=== PATIENT | male | born 1970 | race Caucasian/White ===

== ENCOUNTER → 2016-08-19 | Outpatient (CLI) | payer OTHER ==
[~2016-08-19] MED LIST: /ACETCOD2T PO; /CELE20CA OR; /DIVA50TA PO; /ESOM40CA OR; /ONDA4TA SL; /SUCR1TA OR; ACET65TA OR; ALLE25CA OR; ASPI325T PO; ASPI81TA85 PO; AUGM875T27 PO; BACL10TA2 PO; BOTO100I IM; CETI10CH PO; CETI10TA OR; CETI10TA PO; CETI10TA3 PO; COLA100C2 OR; FISH1000 PO; FLUT50SP; FLUTISP; MAGN1TAB25 PO; MAXA5TAB10 PO; MELO15TA3 PO; MELO15TA4 PO; MELOPOW PO; METO10TA2 OR; MILKSUS OR; MULT1TAB10 PO; MULTCAP PO; NEXI20CA PO; NORT25CA2 PO; PERC5TAB8 OR; PSEU30SY3 PO; RIZA5TAB PO; VITA500046 PO; ZOLO100T PO; ZOLP5TAB PO; [UNRECOGNIZED DRUG - OTHER] OD; patanol OU; tylenol #3 PO
--- NOTE | 2016-08-20 17:20 | ECGEPIP ---
Stationary ECG Study [facility] Test Date: 2016-08-19 Pat Name: VALENTINA ANDREA Department: Room: - Gender: M Technical Illustrator: KIM : 1970 Requested By: Anson Hand Order Number: [id number] Reading MD: Jaden Sharma Measurements Intervals [place] Rate: 59 P: 37 MA: 148 QRS: -9 QRSD: 90 T: 17 QT: 393 QTc: 391 Interpretive Statements SINUS BRADYCARDIA WITH SINUS ARRHYTHMIA Sinus arrhythmia new compared with 12/30/2013. Electronically Signed On 08-20-2016 17:20:27 EDT by Jaden Sharma
== END ==
LOC: M EKG 16:56
PROVIDERS: ATTEND Anesthesiology
DX: G47.9 Sleep disorder, unspecified (principal); R12 Heartburn; M19.90 Unspecified osteoarthritis, unspecified site; F41.9 Anxiety disorder, unspecified; F32.9 Major depressive disorder, single episode, unspecified; I49.5 Sick sinus syndrome; I49.8 Other specified cardiac arrhythmias

== ENCOUNTER → 2016-08-23 | Day surgery (SDC) | payer OTHER ==
[~2016-08-23] VITALS: Ht 180.3 cm; Wt 88.9 kg
[~2016-08-23] MED LIST changes: +ACETAMINOPH W/CODEINE #3 TAB UD PO PRN; +GLYCOPYRROLATE INJ 0.2 MG/ML 2 ML VIAL As Ordered ONE; +HYDROmorphone HCL 1 MG/ML SYRINGE (J1170) IV PRN; +LIDOCAINE 2% INJ 100 MG/5 ML SDV (FOR ANES.) As Ordered ONE; +LIDOCAINE W/EPINEPHRINE 1% 20ML VIAL As Ordered ONE; +LR 1,000 ML IV ONE; +LR 1,000 ML IV SCH; +MIDAZOLAM INJ 2 MG/2 ML VIAL (J2250) As Ordered ONE; +NEOSTIGMINE 1MG/ML 5 ML SYRINGE (J2710) As Ordered ONE; +ONDANSETRON 4MG/2ML VIAL (J2405) As Ordered ONE; +ONDANSETRON 4MG/2ML VIAL (J2405) IV PRN; +PERCOCET 5MG/325MG TAB PO PRN; +PROPOFOL 200 MG/20 ML VIAL As Ordered ONE; +ROCURONIUM BROMIDE 50 MG/5 ML VIAL As Ordered ONE; +SILVER NITRATE APPLICATOR As Ordered ONE; +TRIAMCINOLONE ACETONIDE SUSP 40 MG/ML VIAL (J3301) As Ordered ONE; +dexameTHASONE 4 MG/ML 1ML VIAL (J1100) As Ordered ONE; +fentaNYL 100 MCG/2 ML INJECTION (J3010) As Ordered ONE; +fentaNYL 100 MCG/2 ML INJECTION (J3010) IV PRN
--- NOTE | 2016-08-23 08:58 | RO ---
DATE OF PROCEDURE: 08/23/2016 PREOPERATIVE DIAGNOSIS: Chronic right submandibular sialadenitis. POSTOPERATIVE DIAGNOSIS: Chronic right submandibular sialadenitis. OPERATIVE PROCEDURE: Right sialoendoscopy. SURGEON: Sylvester Hennessy MD NOISE ABATEMENT ENGINEER: BUFFY Rosario ANESTHESIA: DESCRIPTION OF PROCEDURE: Under general anesthesia with the patient intubated, the patient was draped in the usual manner, I probed the opening to the submandibular duct on the right side. I identified the opening, and then I passed the endoscope into the submandibular duct. It was stenotic. I could not pass the cannula or the scope more than 1.5 cm. So, what I did was I made an incision over the duct. The duct was all stenotic. Again, once I identified that, I still could not pass the scope down into it. So, I elected to end the procedure. The patient will require a submandibular gland resection. Edited: 08/23/2016 1032 vlm MTDD
[2016-08-23 10:45] VITALS: BP 131/83
== END ==
LOC: M SDC 05:52
PROVIDERS: ATTEND Otolaryngology
DX: K11.23 Chronic sialoadenitis (principal); I10 Essential (primary) hypertension; Z79.899 Other long term (current) drug therapy; Z79.82 Long term (current) use of aspirin; Q21.1 Atrial septal defect; M19.90 Unspecified osteoarthritis, unspecified site; F32.9 Major depressive disorder, single episode, unspecified; F41.9 Anxiety disorder, unspecified; G47.30 Sleep apnea, unspecified; M51.9 Unspecified thoracic, thoracolumbar and lumbosacral intervertebral disc disorder; G43.909 Migraine, unspecified, not intractable, without status migrainosus; J30.2 Other seasonal allergic rhinitis
CPT/HCPCS: 42699; J1100; J2250; J2405; J2710; J3010

== ENCOUNTER 2017-02-27 10:23 | Day surgery (SDC) | payer OTHER ==
[~2017-02-27] VITALS: Ht 177.8 cm; Wt 96.6 kg
[~2017-02-27 10:23] MED LIST changes: -ACETAMINOPH W/CODEINE #3 TAB UD PO PRN; +CYCL5TAB PO; -GLYCOPYRROLATE INJ 0.2 MG/ML 2 ML VIAL As Ordered ONE; -HYDROmorphone HCL 1 MG/ML SYRINGE (J1170) IV PRN; -LIDOCAINE 2% INJ 100 MG/5 ML SDV (FOR ANES.) As Ordered ONE; -LIDOCAINE W/EPINEPHRINE 1% 20ML VIAL As Ordered ONE; -LR 1,000 ML IV SCH; +META48.54 PO; -MIDAZOLAM INJ 2 MG/2 ML VIAL (J2250) As Ordered ONE; -NEOSTIGMINE 1MG/ML 5 ML SYRINGE (J2710) As Ordered ONE; -ONDANSETRON 4MG/2ML VIAL (J2405) As Ordered ONE; -ONDANSETRON 4MG/2ML VIAL (J2405) IV PRN; -PERCOCET 5MG/325MG TAB PO PRN; -PROPOFOL 200 MG/20 ML VIAL As Ordered ONE; -ROCURONIUM BROMIDE 50 MG/5 ML VIAL As Ordered ONE; -SILVER NITRATE APPLICATOR As Ordered ONE; -TRIAMCINOLONE ACETONIDE SUSP 40 MG/ML VIAL (J3301) As Ordered ONE; -dexameTHASONE 4 MG/ML 1ML VIAL (J1100) As Ordered ONE; -fentaNYL 100 MCG/2 ML INJECTION (J3010) As Ordered ONE; -fentaNYL 100 MCG/2 ML INJECTION (J3010) IV PRN
[2017-02-27] MEDS ORDERED: MIDAZOLAM INJ 2 MG/2 ML VIAL (J2250) As Ordered ONE (13:13)
[2017-02-27] MEDS ORDERED: fentaNYL 100 MCG/2 ML INJECTION (J3010) As Ordered ONE ×2 (13:13→15:25)
[2017-02-27] MEDS ORDERED: BACITRACIN OINT 30GM As Ordered ONE (13:41)
[2017-02-27] MEDS ORDERED: LIDOCAINE W/EPINEPHRINE 1% 20ML VIAL As Ordered ONE (13:41)
[2017-02-27] MEDS ORDERED: LIDOCAINE 2% INJ 100 MG/5 ML SDV (FOR ANES.) As Ordered ONE (14:05)
[2017-02-27] MEDS ORDERED: dexameTHASONE 4 MG/ML 1ML VIAL (J1100) As Ordered ONE (14:05)
[2017-02-27] MEDS ORDERED: ROCURONIUM BROMIDE 50 MG/5 ML VIAL/SYRINGE As Ordered ONE (14:05)
[2017-02-27] MEDS ORDERED: PROPOFOL 200 MG/20 ML VIAL As Ordered ONE (14:05)
[2017-02-27] MEDS ORDERED: ONDANSETRON 4MG/2ML VIAL (J2405) As Ordered ONE (14:05)
[2017-02-27] MEDS ORDERED: ONDANSETRON 4MG/2ML VIAL (J2405) IV PRN (15:45)
[2017-02-27] MEDS ORDERED: LR 1,000 ML IV SCH ×2 (15:45→16:00)
[2017-02-27] MEDS ORDERED: PERCOCET 5MG/325MG TAB PO PRN (15:45)
[2017-02-27] MEDS ORDERED: fentaNYL 100 MCG/2 ML INJECTION (J3010) IV PRN (15:45)
--- NOTE | 2017-02-27 15:56 | RO ---
DATE OF PROCEDURE: 02/27/2017 PREOPERATIVE DIAGNOSIS: Chronic right submandibular sialadenitis. POSTOPERATIVE DIAGNOSIS: Chronic right submandibular sialadenitis. OPERATIVE PROCEDURE: Right submandibular gland resection. SURGEON: Sylvester Hennessy MD LIBRARY SERVICES DEAN: Mariano Pollock PA-C ANESTHESIA: General. DESCRIPTION OF PROCEDURE: Under general anesthesia, with the patient intubated, the patient was draped in the usual manner. I marked out the incision at the level of the hyoid. I infiltrated with lidocaine with epinephrine. I made an incision dividing the skin and subcutaneous tissue and platysma. I dissected down to the inferior aspect of the submandibular gland. Then singling out the gland, I followed the gland superiorly. Then using a Harmonic scalpel, I dissected around the gland, and identified vessels and then divided them with the Harmonic scalpel. I went superiorly and then anteriorly, identified the mylohyoid muscle. Posteriorly vessels entering into the gland were divided with a Harmonic scalpel. I identified the lingual nerve and then divided the pedicle distal to that. I then delivered the gland from the wound. The area was irrigated to make sure there was no bleeding. The vessels bleeding were cauterized with bipolar cautery. When there was no bleeding, then I put some Surgicel on the wound and then closed the wound with #4-0 Vicryl and then #5-0 nylon. Less than 5 mL of estimated blood loss. The patient tolerated the procedure well, was extubated and transferred to the recovery room in excellent condition.
[2017-02-27] MEDS ORDERED: ACETAMINOPH W/CODEINE #3 TAB UD PO PRN (16:00)
[2017-02-27] MEDS ORDERED: KETOROLAC 30 MG/ML VIAL (J1885) As Ordered ONE (16:26)
[2017-02-27] MEDS ORDERED: KETOROLAC 30 MG/ML VIAL (J1885) IV PRN (16:45)
[2017-02-27 17:34] VITALS: BP 123/76
== END 2017-02-27 17:40 | disposition home or self-care (01) ==
LOC: M SDC 10:23
PROVIDERS: ATTEND Otolaryngology
DX: K11.23 Chronic sialoadenitis (principal); I10 Essential (primary) hypertension; F41.9 Anxiety disorder, unspecified; M12.9 Arthropathy, unspecified; G43.909 Migraine, unspecified, not intractable, without status migrainosus; Q21.1 Atrial septal defect; M51.9 Unspecified thoracic, thoracolumbar and lumbosacral intervertebral disc disorder; F32.9 Major depressive disorder, single episode, unspecified; R06.83 Snoring; G47.33 Obstructive sleep apnea (adult) (pediatric); J30.9 Allergic rhinitis, unspecified; K21.9 Gastro-esophageal reflux disease without esophagitis; Z79.899 Other long term (current) drug therapy; Z79.82 Long term (current) use of aspirin
CPT/HCPCS: 42440; 88307; J1100; J1885; J2250; J2405; J3010

== ENCOUNTER 2018-02-25 10:53 | Emergency (ER) | payer MEDICARE, OTHER | END 2018-02-25 14:15 | disposition home or self-care (01) | LOC: M ED 10:53 | DX: M96.89 Other intraoperative and postprocedural complications and disorders of the musculoskeletal system (principal); R22.31 Localized swelling, mass and lump, right upper limb; K21.9 Gastro-esophageal reflux disease without esophagitis; F33.9 Major depressive disorder, recurrent, unspecified; F41.9 Anxiety disorder, unspecified; K44.9 Diaphragmatic hernia without obstruction or gangrene; J30.2 Other seasonal allergic rhinitis; Z79.899 Other long term (current) drug therapy; Z79.82 Long term (current) use of aspirin | CPT/HCPCS: 99282 ==

== ENCOUNTER 2022-06-04 15:14 | Emergency (ER) | payer MEDICARE, OTHER ==
[~2022-06-04] VITALS: Ht 170.2 cm; Wt 100.0 kg
[~2022-06-04 15:14] MED LIST changes: -/ACETCOD2T PO; -/CELE20CA OR; -/DIVA50TA PO; -/ESOM40CA OR; -/ONDA4TA SL; -/SUCR1TA OR; +ACET1TAB15 PO; -ASPI81TA85 PO; +ASPI81TA86 PO; +CELE1CAP4 OR; +DEPA1TAB3 PO; +FLUT1SPR2; -LR 1,000 ML IV ONE; -MAGN1TAB25 PO; +MAGN1TAB26 PO; +MELO15TA28 PO; -MELO15TA4 PO; +NEXI1CAP3 OR; +ONDA-1 SL; +OXYC1SOL3 PO; +PATA2.5S OD; -RIZA5TAB PO; +RIZA5TAB2 PO; +SUCR1TAB56 OR; -[UNRECOGNIZED DRUG - OTHER] OD
[2022-06-04] MEDS ORDERED: ONDANSETRON 4MG 2ML VIAL IV ONE (16:20)
[2022-06-04] MEDS ORDERED: MORPHINE 4 MG/ML 1ML VIAL IV ONE (16:20)
[2022-06-04] MEDS ORDERED: NS 1,000 ML IV ONE (16:20)
[2022-06-04 17:26] LABS: BASO % 0.2 % (0.0-1.0); EOS % 0.2 % (0.0-3.0); HEMATOCRIT 45.7 % (42.0-52.0); HEMOGLOBIN 16.6 g/dl (13.5-17.5); LYMPH # 0.8 10^3/uL (1.5-5.0); LYMPH % 6.6 % (24.0-44.0); MEAN CORPUSCULAR HEMOGLOBIN 31.7 pg (27.0-33.0); MEAN CORPUSCULAR HGB CONC 36.3 g/dl (32.0-36.5); MEAN CORPUSCULAR VOLUME 87.4 fl (80.0-96.0); MONO # 1.2 10^3/uL (0.0-0.8); MONO % 9.7 % (2.0-8.0); NEUTROPHILS # 9.9 10^3/uL (1.5-8.5); NEUTROPHILS % 82.8 % (36.0-66.0); PLATELET COUNT, AUTOMATED 214 10^3/uL (150-450); RED BLOOD COUNT 5.23 10^6/uL (4.30-6.10)
[2022-06-04 17:35] LABS: LIPASE 34 U/L (12-53)
[2022-06-04 17:37] LABS: ALBUMIN 4.4 G/DL (3.2-5.2); ALKALINE PHOSPHATASE 80 U/L (46-116); ALT/SGPT 62 U/L (7.0-40); AST/SGOT 38 U/L (<34); BILIRUBIN,DIRECT 0.5 MG/DL (<0.4); BILIRUBIN,TOTAL 1.1 MG/DL (0.3-1.2); BLOOD UREA NITROGEN 17 MG/DL (9-23); CALCIUM LEVEL 9.6 MG/DL (8.5-10.1); CARBON DIOXIDE LEVEL 24 MMOL/L (20-31); CHLORIDE LEVEL 105 MMOL/L (98-107); CREATININE FOR GFR 1.17 MG/DL (0.70-1.30); GLOMERULAR FILTRATION RATE > 60.0 (>56); GLUCOSE, FASTING 104 MG/DL (60-100); SODIUM LEVEL 137 MMOL/L (136-145); TOTAL PROTEIN 6.7 G/DL (5.7-8.2)
[2022-06-04 17:41] LABS: INR 1.01; PROTHROMBIN TIME 13.5 SECONDS (12.5-14.5)
[2022-06-04] MEDS ORDERED: ISOVUE-370 76% 100ML VIAL As Ordered ONE (17:41)
[2022-06-04 17:42] LABS: PARTIAL THROMBOPLASTIN TIME 25.6 SECONDS (24.8-34.2)
[2022-06-04 19:57] VITALS: BP 129/84
[2022-06-04] MEDS ORDERED: CIPR-249 PO (20:21)
[2022-06-04] MEDS ORDERED: KETO10TAB PO (20:21)
[2022-06-04] MEDS ORDERED: FLOM0.4C39 PO (20:21)
[2022-06-04] MEDS ORDERED: TAMSULOSIN 0.4 MG CAP PO ONE (20:25)
[2022-06-04] MEDS ORDERED: CIPROFLOXACIN 500MG TABLET PO ONE (20:25)
== END 2022-06-04 20:45 | disposition home or self-care (01) ==
LOC: M ED 15:14
DX: N20.1 Calculus of ureter (principal); G25.0 Essential tremor; K21.9 Gastro-esophageal reflux disease without esophagitis; M54.9 Dorsalgia, unspecified; J30.89 Other allergic rhinitis; F41.9 Anxiety disorder, unspecified; Z79.82 Long term (current) use of aspirin; Z79.899 Other long term (current) drug therapy
CPT/HCPCS: 74177; 80048; 80076; 81001; 83605; 83690; 85025; 85610; 85730; 87040; 96361; 96374; 96375; 99284; J2270; J2405; Q9967

== ENCOUNTER 2022-08-11 10:31 | Day surgery (SDC) | payer MEDICARE, OTHER ==
[~2022-08-11] VITALS: Ht 177.8 cm; Wt 98.4 kg
[~2022-08-11 10:31] MED LIST changes: +ASPI-655 PO; +CELE1CAP4 PO; +CIPR-249 PO; +FLOM0.4C39 PO; +FLUT50SP17; -FLUTISP; +KETO10TAB PO; +MIDO5TA PO; +OMEG10002 PO; +ROSU20TA5 PO; +VITA100093 PO
[2022-08-11 10:58] LABS: HEMATOCRIT 46.3 % (42.0-52.0); HEMOGLOBIN 16.2 g/dl (13.5-17.5); MEAN CORPUSCULAR HEMOGLOBIN 31.3 pg (27.0-33.0); MEAN CORPUSCULAR VOLUME 89.4 fl (80.0-96.0); PLATELET COUNT, AUTOMATED 218 10^3/uL (150-450); RED BLOOD COUNT 5.18 10^6/uL (4.30-6.10); WHITE BLOOD COUNT 5.2 10^3/uL (4.0-10.0)
[2022-08-11] MEDS ORDERED: MIDAZOLAM INJ 2MG/2ML VIAL As Ordered ONE (12:09)
[2022-08-11] MEDS ORDERED: propofoL 200 MG/20 ML VIAL As Ordered ONE (12:10)
[2022-08-11] MEDS ORDERED: LIDOCAINE 2% 100MG/5ML SDV (FOR ANES.) As Ordered ONE (12:15)
[2022-08-11] MEDS ORDERED: fentaNYL 100 MCG/2 ML INJECTION As Ordered ONE (12:15)
[2022-08-11 15:04] VITALS: BP 118/85
== END 2022-08-11 16:15 | disposition home or self-care (01) ==
LOC: M SDC 10:31
PROVIDERS: ATTEND Surgery
DX: D16.8 Benign neoplasm of pelvic bones, sacrum and coccyx (principal); E78.5 Hyperlipidemia, unspecified; K44.9 Diaphragmatic hernia without obstruction or gangrene; F41.9 Anxiety disorder, unspecified; F32.A Depression, unspecified; G43.909 Migraine, unspecified, not intractable, without status migrainosus; R06.83 Snoring; G47.33 Obstructive sleep apnea (adult) (pediatric); Z79.899 Other long term (current) drug therapy
CPT/HCPCS: 11406; 12034; 36415; 85027; 88304; J2250; J3010

== ENCOUNTER → 2023-01-18 | Outpatient (CLI) | payer OTHER ==
[~2023-01-18] MED LIST changes: -ROSU20TA5 PO; +ROSU20TA61 PO
== END ==
LOC: M SOG 08:55
PROVIDERS: ATTEND Orthopaedic Surgery
DX: M25.571 Pain in right ankle and joints of right foot (principal); M25.572 Pain in left ankle and joints of left foot

== ENCOUNTER 2024-08-22 11:05 | Emergency (ER) | payer OTHER, MEDICARE ==
[~2024-08-22] VITALS: Ht 177.8 cm; Wt 105.9 kg
[~2024-08-22 11:05] MED LIST changes: -CYCL5TAB PO; +CYCL5TAB4 PO; -FLOM0.4C39 PO; -FLUT50SP17; +FLUTISP; -ROSU20TA61 PO; +ROSU20TA86 PO; +TAMS-18 PO
[2024-08-22 11:52] LABS: BASO % 0.3 % (0.0-1.0); EOS % 0.4 % (0.0-3.0); HEMOGLOBIN 17.4 g/dl (13.5-17.5); LYMPH # 0.6 10^3/uL (1.5-5.0); LYMPH % 6.2 % (24.0-44.0); MEAN CORPUSCULAR HGB CONC 35.5 g/dl (32.0-36.5); MEAN CORPUSCULAR VOLUME 90.1 fl (80.0-96.0); MONO # 0.4 10^3/uL (0.0-0.8); MONO % 4.7 % (2.0-8.0); NEUTROPHILS # 8.2 10^3/uL (1.5-8.5); NEUTROPHILS % 87.5 % (36.0-66.0); PLATELET COUNT, AUTOMATED 205 10^3/uL (150-450); RED BLOOD COUNT 5.44 10^6/uL (4.30-6.10); WHITE BLOOD COUNT 9.4 10^3/uL (4.0-10.0)
[2024-08-22 12:11] LABS: ALBUMIN 4.3 G/DL (3.2-5.2); BILIRUBIN,DIRECT 0.3 MG/DL (<0.4); BILIRUBIN,TOTAL 0.8 MG/DL (0.3-1.2); CALCIUM LEVEL 9.2 MG/DL (8.5-10.1); CREATININE FOR GFR 1.22 MG/DL (0.70-1.30); GLOMERULAR FILTRATION RATE 71.3 (>56); TOTAL PROTEIN 7.1 G/DL (5.7-8.2)
[2024-08-22] MEDS: NS (Normal Saline) 0.9% 1,000 ML IV ONE (12:59)
[2024-08-22 13:21] LABS: AMORPHOUS SEDIMENT SMALL (NEGATIVE); APPEARANCE, URINE HAZY (CLEAR); BACTERIA, URINE AUTO NEGATIVE (NEGATIVE); BILIRUBIN, URINE AUTO NEGATIVE (NEGATIVE); BLOOD, URINE BLOOD 3+ (NEGATIVE); COLOR, URINE AMBER (YELLOW); GLUCOSE, URINE (UA) AUTO NEGATIVE (NEGATIVE); KETONE, URINE AUTO NEGATIVE (NEGATIVE); LEUKOCYTE ESTERASE, URINE AUTO NEGATIVE (NEGATIVE); MUCUS, URINE LARGE (NEGATIVE); NITRITE, URINE AUTO NEGATIVE (NEGATIVE); PROTEIN, URINE AUTO 1+ mg/dL (NEGATIVE); RBC, URINE AUTO 19 /HPF (0-3); SPECIFIC GRAVITY URINE AUTO 1.017 (1.002-1.035); SQUAMOUS EPITHELIAL CELL UR AU 0 /HPF (0-6); WBC, URINE AUTO 2 /HPF (0-3)
[2024-08-22] MEDS ORDERED: KETO-204 PO (14:49)
[2024-08-22] MEDS ORDERED: TAMS-18 PO (14:49)
[2024-08-22 16:15] VITALS: BP 133/75; TEMP 98.9; O2SAT 95
== END 2024-08-22 16:26 | disposition home or self-care (01) ==
LOC: M ED 11:05
DX: N20.1 Calculus of ureter (principal); Z91.09 Other allergy status, other than to drugs and biological substances; Z79.1 Long term (current) use of non-steroidal anti-inflammatories (NSAID); Z79.899 Other long term (current) drug therapy

== ENCOUNTER → 2024-11-22 | Outpatient (REF) | payer OTHER ==
[~2024-11-22] MED LIST changes: +KETO-204 PO
[2024-11-22 17:44] LABS: COMPLEMENT C4 28.5 MG/DL (12-36)
[2024-11-25 13:18] LABS: PROTEIN CREATININE RATIO 43 mg/g creat (25-148); T PROTEIN CREATININE RATIO 0.043 (0.025-0.148); UPEP CREATININE 210 mg/dL (20-320); UPEP TOTAL PROTEIN 9 mg/dL (5-25)
[2024-11-26 06:27] LABS: UPEP ALBUMIN 100 %; URINE ALPHA 1 GLOBULIN 0 %; URINE ALPHA 2 GLOBULIN 0 %; URINE BETA GLOBULIN 0 %; URINE GAMMA GLOBULIN 0 %
[2024-11-26 18:57] LABS: ANTI-GLOMERULAR BASEMENT MEMB < 1.0 AI (<1.0)
[2024-11-27 10:53] LABS: ANTI DS-DNA AB Negative (Negative)
== END ==
LOC: M LAB REF 16:37
PROVIDERS: ATTEND Internal Medicine Nephrology
DX: R80.9 Proteinuria, unspecified (principal)

== ENCOUNTER → 2024-12-04 | Outpatient (CLI) | payer OTHER ==
[~2024-12-04] MED LIST changes: -ASPI-655 PO; +ASPI-737 PO
== END ==
LOC: M RAD 15:28
PROVIDERS: ATTEND Nurse Practitioner Family
DX: N50.3 Cyst of epididymis (principal); N50.89 Other specified disorders of the male genital organs

== ENCOUNTER → 2025-03-27 | Outpatient (REF) | payer OTHER ==
[~2025-03-27] MED LIST changes: -ZOLP5TAB PO; +ZOLP5TAB9 PO
[2025-03-27 12:03] LABS: SEMEN APPEARANCE OPAQUE (OPAQUE); SEMEN VISCOSITY LIQUID (LIQUID); SEMEN VOLUME 6.1 ml (2.0-5.0); WBC CONCENTRATION >1 M/ml (<=1 M/ml)
== END ==
LOC: M LAB REF 11:33
DX: Z30.2 Encounter for sterilization (principal)